=== PATIENT | male | born 1970 | race Caucasian/White ===

== ENCOUNTER 2022-03-04 18:00 | Outpatient (CLI) | payer BC | END 2022-03-04 18:01 | disposition home or self-care (01) | LOC: SLEEPLAB 18:00 | PROVIDERS: ATTEND Family Medicine | DX: G47.33 Obstructive sleep apnea (adult) (pediatric) (principal); R53.83 Other fatigue; F41.9 Anxiety disorder, unspecified; E66.9 Obesity, unspecified; R06.83 Snoring; G47.00 Insomnia, unspecified | CPT/HCPCS: 95800 ==

== ENCOUNTER 2024-03-15 09:47 | Outpatient (CLI) | payer BC | END 2024-03-15 09:48 | disposition home or self-care (01) | LOC: BICRAD 09:47 | PROVIDERS: ATTEND Family Medicine | DX: R05.1 Acute cough (principal) | CPT/HCPCS: 71046 ==